=== PATIENT | male | born 2000 | race Caucasian/White ===

== ENCOUNTER 2018-03-12 07:16 | Day surgery (SDC) | payer OTHER ==
[2018-03-09 15:33] VITALS: BMI 31.7
[2018-03-12] MEDS ORDERED: LIDOCAINE HCL 1%, 10 MG/ML (20ML VIAL) ONE (10:12)
[2018-03-12] MEDS ORDERED: BUPIVACAINE HCL/PF 0.5% (5MG/ML) 10 ML VIAL ONE (10:13)
[2018-03-12] MEDS ORDERED: MIDAZOLAM HCL 2 MG/2 ML SINGLE DOSE VIAL ONE (10:22)
[2018-03-12] MEDS ORDERED: LIDOCAINE HCL/PF 2% SDV 5ML VIAL ONE (10:37)
[2018-03-12] MEDS ORDERED: ceFAZolin SODIUM 1 GM VIAL ONE (10:37)
[2018-03-12] MEDS ORDERED: DEXAMETHASONE SOD PHOSPHATE 4 MG/1 ML VIAL ONE ×2 (10:37→11:44)
[2018-03-12] MEDS ORDERED: PROPOFOL 20 ML ONE (10:37)
[2018-03-12] MEDS ORDERED: ceFAZolin SODIUM 1 GM VIAL IVPB ONE (10:54)
[2018-03-12] MEDS ORDERED: BUPIVACAINE HCL/PF (5 MG/ML) 30 ML VIAL IJ ONE (11:10)
[2018-03-12] MEDS ORDERED: oxyCODONE HCL 5 MG TABLET PO PRN (12:01)
[2018-03-12] MEDS ORDERED: ACETAMINOPHEN 1000 MG/100 ML VIAL (NON FORMULARY) IVPB ONE (12:02)
--- NOTE | 2018-03-12 12:13 | OP ---
Operative Note - Note: Operative Date: 03/12/18 Pre-Operative Diagnosis: right hydrocele Operation: right hydrocelectomy Post-Operative Diagnosis: Same as Pre-op Surgeon: Nacho Du Anesthesia: General Specimens Removed: hydrocele sac Operative Report Dictated: Yes
[2018-03-12] MEDS ORDERED: LACTATED RINGERS SOLUTION 1,000 ML IV SCH (12:15)
[2018-03-12] MEDS ORDERED: oxyCODONE HCL 5 MG TABLET ONE (13:41)
[2018-03-12] MEDS ORDERED: oxyCODONE HCL 5 MG TABLET PO ONE (13:46)
--- NOTE | 2018-03-12 13:56 | OP ---
DATE OF OPERATION: 03/12/2018 PREOPERATIVE DIAGNOSIS: Right hydrocele. POSTOPERATIVE DIAGNOSIS: Right hydrocele. PROCEDURE: Right hydrocelectomy. SURGEON: Jean-Paul Agrawal MD ANESTHESIA: General. DESCRIPTION OF PROCEDURE: The patient was brought in the operating room and placed in the supine position on the operating room table. Anesthesia and preoperative antibiotics were administered. The patient was then prepped and draped in the usual sterile manner. An incision over the right hemiscrotum was made. Sharp and blunt dissection was taken to the level of the hydrocele sac. The hydrocele sac was expressed out of the wound. At this point, an incision was made into the hydrocele sac, and the fluid in the hydrocele was aspirated. At this point, the hydrocele sac was excised with electrocauterization. The sac was sent to Pathology for evaluation. A 3-0 Vicryl running stitch was used for the edges of the hydrocele sac remnants in order to obtain hemostasis. At this point, the testes were returned to the right hemiscrotum in normal anatomic position. A 2-layer closure was performed. Then 3-0 Vicryl was utilized for the Dartos fascia and interrupted 3-0 chromic stitch for the skin. There were no complications noted. The disposition of the patient was to the recovery room. JEAN-PAUL AGRAWAL M.D. [id number]
[2018-03-12 14:59] VITALS: BP 135/65; PULSE 100; TEMP 98.2
--- NOTE | 2018-03-14 17:01 | PATH ---
Surgical Pathology Report Patient Name: [facility]. Rec. #: [id number] /Age/Gender: 2000 (Age: 18) / M Account: [id number] Location: [facility] Taken: 03/12/2018 Received: 03/13/2018 Reported: 03/14/2018 Physicians: Nacho Du Specimen(s) Received RIGHT HYDROCELE SAC Clinical History Right hydrocele Final Diagnosis HYDROCELE SAC, RIGHT, REPAIR: FIBROMEMBRANOUS TISSUE CONSISTENT WITH HYDROCELE SAC. Electronically Signed Mallorie Dee M.D. Gross Description Received in formalin labeled "right hydrocele sac," is a 5.7 x 3.0 x 0.3 cm portion of laura aranda fibromembranous tissue, consistent with a hydrocele sac. [employer] sections are submitted in one cassette. DL/03/13/2018 saudi03/13/2018
== END 2018-03-12 16:01 | disposition home or self-care (01) ==
LOC: JASU-SURG 07:16
PROVIDERS: ATTEND Urology
PROC: 0VBF0ZZ Excision of Right Spermatic Cord, Open Approach (ICD-10-PCS; principal; 2018-03-12 09:00)
DX: N43.3 Hydrocele, unspecified (principal)
CPT/HCPCS: 88302-TC; 94760; J0131